=== PATIENT | female | born 1965 | race African-American/Black ===

== ENCOUNTER 2017-12-13 23:43 | Emergency (ER) | payer MEDICARE ==
[~2017-12-13] VITALS: Ht 154.9 cm; Wt 73.9 kg
[2017-12-14] MEDS ORDERED: Tylenol #3 tab (300mg/30mg) ORAL ONE (00:15)
[2017-12-14] MEDS ORDERED: Methocarbamol 750mg tab ORAL ONE (03:30)
[2017-12-14 04:02] VITALS: BP 152/78
[2017-12-14] MEDS ORDERED: ROBAXIN-750750 MG PO (06:29)
[2017-12-14] MEDS ORDERED: IBUPROFEN600 MG ORAL (06:29)
[2017-12-14 06:37] VITALS: BP 0/0
--- NOTE | 2017-12-14 13:10 | Diagnostic Imaging Report ---
Indication: Chest pain Technique: One view of the chest Comparison: Findings: Lungs and pleural spaces are clear. Heart size is upper limits normal Impression: No acute process
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
== END 2017-12-14 06:37 | disposition home or self-care (01) ==
LOC: EDBD 23:43 → EMR 12-14 00:20
DX: S16.1XXA Strain of muscle, fascia and tendon at neck level, initial encounter (principal); V43.62XA Car passenger injured in collision with other type car in traffic accident, initial encounter; Y92.410 Unspecified street and highway as the place of occurrence of the external cause; E11.9 Type 2 diabetes mellitus without complications; I10 Essential (primary) hypertension; E78.5 Hyperlipidemia, unspecified; R07.89 Other chest pain
CPT/HCPCS: 71045; 99284